=== PATIENT | male | born 1950 | race Two or more races ===

== ENCOUNTER 2020-10-11 22:24 | Emergency (ER) | payer OTHER ==
[~2020-10-11] VITALS: Ht 177.8 cm; Wt 68.0 kg
== END 2020-10-12 | disposition home or self-care (01) ==
LOC: ER 22:24
DX: S01.02XA Laceration with foreign body of scalp, initial encounter (principal); W18.39XA Other fall on same level, initial encounter; Y93.89 Activity, other specified; Y92.511 Restaurant or cafe as the place of occurrence of the external cause; Y99.8 Other external cause status